=== PATIENT | female | born 2000 | race Caucasian/White ===

== ENCOUNTER 2023-11-23 20:58 | Emergency (ER) | payer BC ==
[~2023-11-23] VITALS: Ht 154.9 cm; Wt 47.2 kg
[2023-11-23 21:19] VITALS: BP_SYST 103; PULSE 83; RESP 18; TEMP 97.8; O2SAT 97
[2023-11-23] MEDS ORDERED: FLOEARD RIGHT EAR (22:19)
[2023-11-23] MEDS: ACETAMINOPHEN 500 MG TABLET PO ONE (22:24)
[2023-11-23] MEDS: IBUPROFEN 400 MG TABLET PO ONE (22:25)
[2023-11-23 22:27] VITALS: BP_SYST 103; PULSE 83; RESP 18; TEMP 97.8; O2SAT 97
== END 2023-11-23 22:27 | disposition home or self-care (01) ==
LOC: SED 20:58
DX: H60.91 Unspecified otitis externa, right ear (principal); Z79.2 Long term (current) use of antibiotics
CPT/HCPCS: 99283